=== PATIENT | female | born 1980 | race Native Hawaiian/Other Pacific Islander ===

== ENCOUNTER 2016-11-28 12:43 | Emergency (ER) | payer OTHER ==
[~2016-11-28] VITALS: Ht 177.8 cm; Wt 127.0 kg
[2016-11-28 13:00] VITALS: TEMP 97.8
[2016-11-28 13:25] LABS: PLATELET COUNT 304 K/uL (152-353)
[2016-11-28 13:30] LABS: POTASSIUM 4.8 mmol/L (3.6-5.2); SODIUM 132 mmol/L (136-145)
[2016-11-28 16:34] VITALS: BP 143/75
== END 2016-11-28 16:34 | disposition home or self-care (01) ==
LOC: ED 12:43
DX: K52.9 Noninfective gastroenteritis and colitis, unspecified (principal)
CPT/HCPCS: 36415; 80053; 82150; 83690; 85027; 96361; 96374; 96376; 99284; J2405; Q9963